=== PATIENT | female | born 1975 | race Caucasian/White ===

== ENCOUNTER 2017-05-26 17:32 | Emergency (ER) | payer OTHER ==
[2017-05-26 17:45] VITALS: BP 132/64; PULSE 71; RESP 20; TEMP 98.1
[2017-05-26] MEDS ORDERED: PROPARACAINE 0.5% OPHTH DROPS 15 ML BTL BOTH EYES STA (18:37)
--- NOTE | 2017-05-26 19:11 | ED ---
General Adult HPI - General Chief complaint: Eye Problems Stated complaint: DOG SCRATCH RT EYE Time Seen by Provider: 05/26/17 18:29 Source: patient, RN notes reviewed Mode of arrival: ambulatory Limitations: no limitations - History of Present Illness Initial comments: 41-year-old female presents to the emergency department for a chief complaint of right eye pain. Patient states that about an hour ago she was playing with her dog when he scratched her eyelid. Patient denies any dog bites. Patient denies any visual changes but states her vision is somewhat blurry in that eye due to irritation. Patient denies any pain with moving the eye or any pressure in the eye. Patient denies any scintillations or halos around lights. Patient states she is up-to-date on her tetanus as she just got many immunizations for her green card. Patient states her eye feels "scratched." Patient denies any other complaints at this time. Patient denies shortness of breath, chest pain, abdominal pain, nausea or vomiting. - Related Data Previous Rx's Medication Instructions Recorded Cephalexin [Keflex] 500 mg PO Q12HR #20 cap 05/26/17 Erythromycin Ophth Oint [Romycin 1 applic RIGHT EYE QID 5 Days gm 05/26/17 Ophth Oint] Allergies Allergy/AdvReac Type Severity Reaction Status Date / Time No Known Allergies Allergy Verified 05/26/17 17:45 Review of Systems ROS Statement: Those systems with pertinent positive or pertinent negative responses have been documented in the HPI. ROS Other: All systems not noted in ROS Statement are negative. Past Medical History Past Medical History: No Reported History History of Any Multi-Drug Resistant Organisms: None Reported Past Surgical History: Appendectomy, Breast Surgery Past Psychological History: No Psychological Hx Reported Smoking Status: Current every day smoker Past Alcohol Use History: None Reported Past Drug Use History: None Reported General Exam Limitations: no limitations Eye exam: Present: PERRL, EOMI, other (Patient has some mild swelling of the right upper eyelid with a small abrasion. Wood's lamp shows a small corneal abrasion at 9:00. ). Absent: scleral icterus, conjunctival injection ENT exam: Present: normal exam, normal oropharynx, mucous membranes moist, TM's normal bilaterally Respiratory exam: Present: normal lung sounds bilaterally. Absent: respiratory distress, wheezes, rales, rhonchi, stridor Cardiovascular Exam: Present: regular rate, normal rhythm, normal heart sounds. Absent: systolic murmur, diastolic murmur, rubs, gallop, clicks Course Vital Signs 05/26/17 17:43 Temperature 98.1 F Pulse Rate 71 Respiratory 20 Rate Blood Pressure 132/64 O2 Sat by Pulse 96 Oximetry Medical Decision Making - Medical Decision Making 41-year-old female presents to the emergency department for chief complaint of right eye pain. Patient states that about 2 hours ago she was playing with her dog and it scratched her eyelid. Patient denies any visual changes besides some blurriness due to the irritation of the eye. Patient denies any headaches scotomas or halos around the lights. Patient denies any headache or pain with movement of the eye. On exam there is a small abrasion to the R upper eyelid with mild swelling of the right eyelid. There are no visible scratches to the eye. However when Wood's lamp and fluorescein was used and there was a small corneal abrasion at 9:00. Patient is up-to-date on her tetanus. Patient states that the proparacaine drops took away the irritation in her eye completely. There are no foreign bodies on exam. Patient will be sent home with a prescription for erythromycin ointment for the corneal abrasion as well as Keflex for the abrasion on the eyelid. Patient is to return to the emergency Department if she has any worsening symptoms or develops visual changes. She is return if she notices any signs of infection. Otherwise she is to follow up with primary care in 1-2 days. Disposition Clinical Impression: Corneal abrasion Disposition: HOME SELF-CARE Condition: Good Instructions: Corneal Abrasion (ED) Additional Instructions: Please use erythromycin ointment in the affected eye as directed. Please use Motrin or Tylenol for pain relief. Please follow-up with primary care provider in one to 2 days. Please return to the emergency Department if any worsening symptoms, changes in vision, or signs of infection. Prescriptions: Cephalexin [Keflex] 500 mg PO Q12HR #20 cap Erythromycin Ophth Oint [Romycin Ophth Oint] 1 applic RIGHT EYE QID 5 Days gm Is patient prescribed a controlled substance at d/c from ED?: No Referrals: Jesus Peterson DO [Primary Care Provider] - 1-2 days Time of Disposition: 19:10
== END 2017-05-26 19:18 | disposition home or self-care (01) ==
LOC: EC 17:32
DX: S05.01XA Injury of conjunctiva and corneal abrasion without foreign body, right eye, initial encounter (principal); F17.200 Nicotine dependence, unspecified, uncomplicated; W54.0XXA Bitten by dog, initial encounter; Y93.89 Activity, other specified; Y92.009 Unspecified place in unspecified non-institutional (private) residence as the place of occurrence of the external cause
CPT/HCPCS: 99283

== ENCOUNTER → 2022-02-04 | Outpatient (CLI) | payer OTHER ==
--- NOTE | 2022-02-05 10:38 | XR ---
EXAMINATION TYPE: XR hand complete 3 views LT DATE OF EXAM: 02/04/2022 Comparison: None Clinical History: 46-year-old female [id number] LT HAND PAIN Findings: Mild spurring at the base of the thumb. No acute fracture, subluxation, or dislocation seen. Impression: No acute osseous abnormality seen.
== END | disposition home or self-care (01) ==
LOC: RADXRYALE 14:15
PROVIDERS: ATTEND Physician Assistant
DX: M79.642 Pain in left hand (principal)

== ENCOUNTER → 2022-08-02 | Outpatient (CLI) | payer OTHER ==
--- NOTE | 2022-08-02 16:21 | US ---
EXAMINATION TYPE: US transvaginal DATE OF EXAM: 08/02/2022 COMPARISON: NONE CLINICAL INDICATION: Female, 46 years old with history of Z12.31 N95.0; spotting for 1 day. TECHNIQUE: Transvaginal (TV EXAM MEASUREMENTS: Uterus: 5.9 x 5.8 x 5.4 cm Endometrial Stripe: 1.2 cm 1. Uterus: Anteverted Heterogenous fibroid right of uterus 2.4 x 2.3 x 2.7 cm. 2. Endometrium: upper limits measuring 12 mm 3. Right Ovary: Obscured by overlying bowel gas 4. Left Ovary: Obscured by overlying bowel gas 5. Bilateral Adnexa: wnl 6. Posterior cul-de-sac: wnl IMPRESSION: 1. Fibroid uterus without evidence for acute process. 2. The ovaries are not visualized. 3. Endometrium measuring up to 12 mm.
--- NOTE | 2022-08-03 09:51 | MM ---
Reason for Exam: Screening (asymptomatic). Last mammogram was performed 7 year(s) and 7 month(s) ago. Patient History: Menarche at age 7. Patient has no children. Postmenopausal. 1988, Benign Excisional Biopsy on the right side. Risk Values: Irina 5 year model risk: 1.5%. NCI Lifetime model risk: 13.2%. Prior Study Comparison: 12/20/2014 Bilateral Screening Mammogram, [facility]. Tissue Density: The breast tissue is heterogeneously dense. This may lower the sensitivity of mammography. Findings: Analyzed By CAD. There are benign-appearing rounded calcifications redemonstrated scattered throughout the bilateral breasts. Stable circumscribed 5 to 6 mm oval mass in the anterior left breast. Benign-appearing bilateral axillary lymph nodes are redemonstrated. There is no suspicious new group of microcalcifications or new suspicious mass in either breast. Overall Assessment: Benign, BI-RAD 2 Management: Screening Mammogram of both breasts in 1 year. . Patient should continue monthly self-breast exams. A clinical breast exam by your physician is recommended on an annual basis. This exam should not preclude additional follow-up of suspicious palpable abnormalities. Note on Irina scores and lifetime risk: 1. A Irina score greater than 3% is considered moderate risk. If this is the case, consider specialist referral to assess eligibility for a risk reducing agent. 2. If overall lifetime risk for the development of breast cancer is 20% or higher, the patient may qualify for future screening with alternating mammogram and breast MRI. Electronically signed and approved by: Ever oRman M.D.
== END | disposition home or self-care (01) ==
LOC: RADUSWWP 15:40
PROVIDERS: ATTEND Family Medicine
DX: Z12.31 Encounter for screening mammogram for malignant neoplasm of breast (principal); Z78.0 Asymptomatic menopausal state; D25.9 Leiomyoma of uterus, unspecified
CPT/HCPCS: 76830; 77063; 77067

== ENCOUNTER → 2024-03-12 | Outpatient (CLI) | payer BC ==
--- NOTE | 2024-03-12 08:12 | MM ---
Reason for Exam: Screening (asymptomatic). Last mammogram was performed 1 year(s) and 8 month(s) ago. Patient History: Menarche at age 7. Patient has no children. Postmenopausal. 1988, Benign Excisional Biopsy on the right side. Risk Values: Irina 5 year model risk: 1.4%. NCI Lifetime model risk: 12.7%. Prior Study Comparison: 12/20/2014 Bilateral Screening Mammogram, [facility]. 08/02/2022 Bilateral MG 3D screening mammo w/cad, [facility]. Tissue Density: The breasts are heterogeneously dense, which may obscure small masses. Findings: Analyzed By CAD. Scattered benign peribronchial stations bilaterally are redemonstrated. Biopsy clip in right breast is again seen. Benign-appearing bilateral axillary lymph nodes are present. There is no suspicious group of microcalcifications or new suspicious mass in either breast. Overall Assessment: Benign, BI-RAD 2 Management: Screening Mammogram of both breasts in 1 year. Some advise bilateral breast ultrasound surveillance in patient's with background dense tissue. Patient should continue monthly self-breast exams. A clinical breast exam by your physician is recommended on an annual basis. This exam should not preclude additional follow-up of suspicious palpable abnormalities. Note on Irina scores and lifetime risk: 1. A Irina score greater than 3% is considered moderate risk. If this is the case, consider specialist referral to assess eligibility for a risk reducing agent. 2. If overall lifetime risk for the development of breast cancer is 20% or higher, the patient may qualify for future screening with alternating mammogram and breast MRI. [facility], , 03/12/2024 8:09 AM. Electronically signed and approved by: Ever Roman M.D.
== END | disposition home or self-care (01) ==
LOC: RADMAMWWP 07:25
PROVIDERS: ATTEND Family Medicine
DX: Z12.31 Encounter for screening mammogram for malignant neoplasm of breast (principal); R92.333 Mammographic heterogeneous density, bilateral breasts; Z78.0 Asymptomatic menopausal state
CPT/HCPCS: 77063; 77067